=== PATIENT | male | born 1985 | race Two or more races ===

== ENCOUNTER 2020-12-25 07:13 | Emergency (ER) | payer OTHER ==
[2020-12-25] MEDS ORDERED: REFRESH CELLUVISC OP (08:56)
== END 2020-12-25 09:06 | disposition home or self-care (01) ==
LOC: ER1 07:13
DX: H15.001 Unspecified scleritis, right eye (principal); H15.101 Unspecified episcleritis, right eye; Z91.011 Allergy to milk products; Z91.012 Allergy to eggs; Z91.013 Allergy to seafood
CPT/HCPCS: 99283

== ENCOUNTER 2022-04-20 20:38 | Emergency (ER) | payer OTHER ==
[~2022-04-20 20:38] MED LIST: REFRESH CELLUVISC OP
== END 2022-04-20 22:52 | disposition home or self-care (01) ==
LOC: ER1 20:38
DX: S80.12XA Contusion of left lower leg, initial encounter (principal); V49.50XA Passenger injured in collision with unspecified motor vehicles in traffic accident, initial encounter; Y92.410 Unspecified street and highway as the place of occurrence of the external cause
CPT/HCPCS: 73590; 99283